=== PATIENT | female | born 1990 | race African-American/Black ===

== ENCOUNTER 2023-02-03 11:20 | Inpatient (IN) | payer BC ==
[2023-02-03 13:22] VITALS: BMI 32.3
[2023-02-03] MEDS: ELECTROLYTE-148 SOLN 1,000 ML IV SCH ×2 (13:30→16:20)
[2023-02-03 14:15] LABS: POC NITRAZINE POS
[2023-02-03 15:10] LABS: BASO % 0.5 % (0-2.0); HEMATOCRIT 37.5 % (32.4-45.2); HEMOGLOBIN 12.4 GM/dL (10.7-15.3); LYMPH % 10.2 % (8-40); MCH 27.5 pg (25.7-33.7); MCHC 32.9 g/dl (32.0-36.0); MEAN CELL VOLUME 83.7 fl (80-96); MEAN PLT VOLUME 8.3 fl (7.5-11.1); MONO % 7.6 % (3.8-10.2); NEUT % 81.7 % (42.8-82.8); PLATELET COUNT 238 10^3/uL (134-434); RBC 4.48 M/mm3 (3.60-5.2); RDW 13.8 % (11.6-15.6); WHITE BLOOD COUNT 6.4 K/mm3 (4.0-10.0)
[2023-02-03 15:21] LABS: INR 0.95 (0.83-1.09)
[2023-02-03 15:23] LABS: ACTIVATED PTT 30.6 SECONDS (25.2-36.5)
[2023-02-03] MEDS ORDERED: FENTANYL/BUPIVACAINE/NS/PF - PCEA - 50 ML DISP.SYRIN EP ONE ×3 (15:35→23:20)
[2023-02-03] MEDS ORDERED: LIDO 2%/EPI 1:200000 PRESRVFRE (20 ML SDVIAL) ONE (15:36)
[2023-02-03] MEDS ORDERED: BUPIVACAINE HCL/PF 0.25% (2.5MG/ML) 10 ML VIAL ONE ×2 (15:36→22:12)
[2023-02-03] MEDS ORDERED: FENTANYL CITRATE/PF 50 MCG/ML VIAL ONE ×2 (15:36→22:12)
[2023-02-03 15:38] LABS: POTASSIUM 3.9 mmol/L (3.5-5.1)
[2023-02-03 15:40] LABS: CALCIUM 8.8 mg/dL (8.5-10.1)
[2023-02-03 15:41] LABS: BLOOD UREA NITROGEN 10.2 mg/dL (7-18)
[2023-02-03 15:44] LABS: CREATININE 0.6 mg/dL (0.55-1.3)
[2023-02-03] MEDS: FENTANYL/BUPIVACAINE/NS/PF - PCEA - 50 ML DISP.SYRIN EP SCH (15:50)
[2023-02-03] MEDS ORDERED: NALOXONE HCL 0.4 MG/ML VIAL IVPUSH PRN (16:09)
[2023-02-04] MEDS ORDERED: LIDOCAINE HCL 1% PRESERVATIVE FREE - 30ML VIAL ONE (01:29)
[2023-02-04] MEDS ORDERED: OXYTOCIN 20 UNITS in 0.9% NS 20 UNIT/1,000 ML INFUS.BAG IV ONE (01:29)
[2023-02-04] MEDS ORDERED: WITCH HAZEL 50% (TUCKS) 40 PAD/JAR PAD TP PRN (02:11)
[2023-02-04] MEDS ORDERED: IBUPROFEN 600 MG TABLET (FP) PO PRN (02:11)
[2023-02-04] MEDS ORDERED: METHYLERGONOVINE MALEATE 0.2 MG/1 ML AMP IM PRN (02:11)
[2023-02-04] MEDS ORDERED: BENZOCAINE 20% 57 GM BOTTLE TP PRN (02:11)
[2023-02-04] MEDS ORDERED: ACETAMINOPHEN 325 MG TABLET (FP) PO PRN (02:11)
[2023-02-04] MEDS ORDERED: BISACODYL 10 MG SUPP.RECT RC PRN (02:11)
[2023-02-04] MEDS ORDERED: OXYTOCIN 20 UNITS in 0.9% NS 20 UNIT/1,000 ML INFUS.BAG IV SCH (02:15)
[2023-02-04] MEDS: BENZOCAINE 28 GM HEMORRHOIDAL OINTMENT TP PRN (04:55)
[2023-02-04] MEDS: PRENATAL VITAMINS W/ FOLIC ACID TABLET (FP) PO SCH (09:20)
[2023-02-04] MEDS ORDERED: DIPHTH,PERTUSS(ACELL),TET 0.5 ML DISP.SYRIN IM ONE (10:00)
[2023-02-04] MEDS: ELECTROLYTE-148 SOLN 1,000 ML IV SCH (12:51)
[2023-02-04] MEDS: FENTANYL/BUPIVACAINE/NS/PF - PCEA - 50 ML DISP.SYRIN EP SCH (16:53)
[2023-02-04 21:55] VITALS: RESP 18
[2023-02-05 08:24] LABS: BASO % 0.3 % (0-2.0); EOS % 0.8 % (0-4.5); LYMPH % 15.6 % (8-40); MCH 27.5 pg (25.7-33.7); MCHC 32.3 g/dl (32.0-36.0); MEAN CELL VOLUME 85.4 fl (80-96); MONO % 10.1 % (3.8-10.2); NEUT % 73.2 % (42.8-82.8); PLATELET COUNT 229 10^3/uL (134-434); RBC 3.63 M/mm3 (3.60-5.2); RDW 13.6 % (11.6-15.6)
[2023-02-05] MEDS: PRENATAL VITAMINS W/ FOLIC ACID TABLET (FP) PO SCH (09:24)
[2023-02-05] MEDS: ELECTROLYTE-148 SOLN 1,000 ML IV SCH (19:27)
[2023-02-05] MEDS: FENTANYL/BUPIVACAINE/NS/PF - PCEA - 50 ML DISP.SYRIN EP SCH (19:28)
[2023-02-05] MEDS ORDERED: SENNOSIDES/DOCUSATE COMBO (SENNA PLUS) TABLET (UD) PO PRN (22:00)
[2023-02-06] MEDS: PRENATAL VITAMINS W/ FOLIC ACID TABLET (FP) PO SCH (09:11)
[2023-02-06 09:21] VITALS: BP 117/66; PULSE 83; TEMP 98.6
[2023-02-06] MEDS: BENZOCAINE 28 GM HEMORRHOIDAL OINTMENT TP PRN (09:31)
== END 2023-02-06 11:45 | disposition home or self-care (01) | DRG 560 ==
LOC: JDEL 11:20 → JLDR 12:40 → J3W 02-04 04:06
PROVIDERS: ADMIT Student in an Organized Health Care Education/Training Program; ATTEND Student in an Organized Health Care Education/Training Program
PROC: 10E0XZZ Delivery of Products of Conception, External Approach (ICD-10-PCS; principal; 2023-02-04)
PROC: 0HQ9XZZ Repair Perineum Skin, External Approach (ICD-10-PCS; 2023-02-04)
DX: O70.0 First degree perineal laceration during delivery (principal); Z3A.40 40 weeks gestation of pregnancy; Z37.0 Single live birth
CPT/HCPCS: 36415; 59025; 80048; 83986-QW; 85025; 85610; 85730; 86780; 86850; 86900; 86901; 90715